=== PATIENT | female | born 1975 | race Caucasian/White ===

== ENCOUNTER 2021-08-05 07:20 | Day surgery (SDC) | payer OTHER, SELFPAY ==
[2021-08-01 13:47] LABS: BASOPHILS # (AUTO) 0.1 K/uL (0.00-0.22); BASOPHILS % (AUTO) 0.7 % (0.0-2.0); EOSINOPHILS # (AUTO) 0.2 K/uL (0-0.4); EOSINOPHILS % (AUTO) 2.2 % (0.0-4.0); HEMATOCRIT 39.7 % (36-48); HEMOGLOBIN 13.1 g/dL (12.0-16.0); LYMPHOCYTES # (AUTO) 1.9 K/uL (2.5-16.5); LYMPHOCYTES % (AUTO) 24.6 % (20.5-51.1); MEAN CORPUSCULAR HEMOGLOBIN 30 pg (27-31); MEAN CORPUSCULAR HGB CONC 33 g/dL (33-37); MEAN CORPUSCULAR VOLUME 91.3 fL (80-94); MONOCYTES # (AUTO) 0.4 K/uL (0.8-1.0); MONOCYTES % (AUTO) 4.7 % (1.7-9.3); NEUTROPHILS # (AUTO) 5.1 K/uL (1.8-7.7); NEUTROPHILS % (AUTO) 67.8 % (42.2-75.2); PLATELET COUNT (AUTO) 258 K/uL (140-450); RED BLOOD CELL COUNT(AUTO) 4.35 MIL/uL (4.20-5.40); RED CELL DISTRIBUTION WIDTH 12.8 % (11.6-13.7); WHITE BLOOD COUNT (AUTO) 7.5 K/uL (4.8-10.8)
[2021-08-01 13:51] LABS: PROTHROMBIN TIME 9.7 secs (10.8-13.4)
[2021-08-01 14:08] LABS: ALBUMIN 3.6 g/dL (3.4-5.0); ANION GAP 9.6 (8-16); CARBON DIOXIDE 28.5 mmol/L (21-32); CREATININE 0.7 mg/dL (0.6-1.3); POTASSIUM 4.1 mmol/L (3.5-5.1); TOTAL BILIRUBIN 0.7 mg/dL (0.0-1.0)
[~2021-08-05] VITALS: Ht 165.1 cm; Wt 127.0 kg
[~2021-08-05 07:20] MED LIST: MIDAZOLAM 2 MG/2 ML VIAL ONE; PROPOFOL 200 MG/20 ML VIAL IV ONE; fentaNYL citrate 0.05 MG/ML VIAL ONE
[2021-08-05] MEDS ORDERED: BUPIVACAINE-MPF 0.25% 30 ML VIAL INJ ONE (09:23)
[2021-08-05] MEDS ORDERED: LIDOCAINE 1% 500 MG/50 ML VIAL ONE (09:23)
[2021-08-05] MEDS ORDERED: PROPOFOL 200 MG/20 ML VIAL IV ONE (09:30)
[2021-08-05] MEDS ORDERED: SEVOFLURANE 250 ML BTL INH ONE (11:05)
[2021-08-05] MEDS ORDERED: DEXAMETHASONE 4 MG/ML VIAL ONE (11:47)
[2021-08-05] MEDS ORDERED: ONDANSETRON 4 MG/2 ML VIAL ONE (11:47)
[2021-08-05] MEDS ORDERED: MEPERIDINE 50 MG/ML SYR ONE (11:52)
[2021-08-05] MEDS ORDERED: HYDROmorphone 1 MG/ML AMP IVP PRN (12:05)
[2021-08-05] MEDS ORDERED: diphenhydrAMINE 50 MG/ML VIAL IVP PRN (12:05)
[2021-08-05] MEDS ORDERED: LACTATED RINGERS 1,000 ML IV SCH (12:05)
[2021-08-05] MEDS ORDERED: ONDANSETRON 4 MG/2 ML VIAL IVP PRN (12:05)
[2021-08-05] MEDS ORDERED: MEPERIDINE 25 MG/ML SYR IVP PRN (12:05)
[2021-08-05] MEDS ORDERED: hydrALAZINE 20 MG/ML VIAL ONE (12:42)
[2021-08-05] MEDS ORDERED: ACETAMINOPHEN EXTRA STRENGTH 500 MG TAB PO SCH (14:40)
== END 2021-08-05 14:56 | disposition home or self-care (01) ==
LOC: MDS 07:20 → MMU 07:21 → MDS 14:56
PROVIDERS: ATTEND Podiatrist Foot & Ankle Surgery
DX: M77.51 Other enthesopathy of right foot and ankle (principal); M20.5X1 Other deformities of toe(s) (acquired), right foot; L60.0 Ingrowing nail; Z79.01 Long term (current) use of anticoagulants; I10 Essential (primary) hypertension; E66.9 Obesity, unspecified; Z68.42 Body mass index [BMI] 45.0-49.9, adult; Z88.6 Allergy status to analgesic agent; Z79.899 Other long term (current) drug therapy
CPT/HCPCS: 11750; 28112; 28740; 36415; 71045; 73630; 80053; 81025; 85025; 85610; 85730; 87426; J0360; J0690; J1100; J2001; J2175; J2250; J2405; J2704; J3010; J3490; J7060; J7120; Q0092